=== PATIENT | female | born 1990 | race Two or more races ===

== ENCOUNTER 2017-10-21 12:32 | Emergency (ER) | payer MEDICAID ==
[~2017-10-21] VITALS: Ht 180.3 cm; Wt 64.4 kg
--- NOTE | 2017-10-21 12:41 | NUR ---
A/OX4, PT CAME TO ER FOR FEELING OF SOB, PT STS, "I WOKE UP THIS AM AND I CAN'T BREATHE, MY FACE IS TINGLING" PT APPEARS ANXIOUS. TACHYCARDIC, OTHERWISE VSS. ALL NEEDS ARE ATTENDED, KEPT WARM AND COMFORTABLE. PENDING ER MD EVALUATION
[2017-10-21] MEDS ORDERED: LORAZEPAM 1 MG TABLET PO ONE (13:00)
[2017-10-21] MEDS ORDERED: LORAZEPAM 1 MG TABLET ONE (13:01)
[2017-10-21] MEDS ORDERED: ALBUTEROL FS 2.5 MG/0.5 ML VIAL.NEB NEB ONE (14:30)
[2017-10-21] MEDS ORDERED: ALBUTEROL FS 2.5 MG/0.5 ML VIAL.NEB ONE (14:38)
--- NOTE | 2017-10-21 14:45 | NUR ---
BREATHING TREATMENT IN PROGRESS AT BEDSIDE.
[2017-10-21] MEDS ORDERED: IV NS 0.9% 1,000 ML BAG IV ONE (15:30)
[2017-10-21 17:00] VITALS: BP 120/71
--- NOTE | 2017-10-21 17:00 | NUR ---
Patient discharged to home in stable condition. Written and verbal after care instructions given. Patient verbalizes understanding of instruction.IV removed. Catheter intact and site benign. Pressure and 4x4 applied to site. No bleeding noted. PT ambulatory with a steady gait VITAL SIGNS WITHIN NORMAL LIMITS.
== END 2017-10-21 17:01 | disposition home or self-care (01) ==
LOC: ER 12:35
DX: B34.9 Viral infection, unspecified (principal); Z88.8 Allergy status to other drugs, medicaments and biological substances
CPT/HCPCS: 71045-TC; A4606; Z7610